=== PATIENT | female | born 1965 | race Two or more races ===

== ENCOUNTER 2017-01-26 11:06 | Emergency (ER) | payer BC, OTHER ==
[2017-01-26 11:10] VITALS: BP 139/82; PULSE 68; TEMP 98.1; BMI 29.2
--- NOTE | 2017-01-26 11:59 | PDOC ---
"History of Present Illness - General Chief Complaint: Back Pain Stated Complaint: BACK PAIN Time Seen by Provider: 01/26/17 11:37 History Source: Patient Exam Limitations: No Limitations - History of Present Illness Initial Comments: 01/26/17 15:30 My chief complaint: Right-sided lower back pain with muscle spasm, and slight pain to left anterior thigh History of present illness: Patient is a 51-year-old female with a history of laminectomy of L3-L5 on 05/17/2016 at [facility]. Patient reports that 3 days ago she started to feel right lower back pain with spasming of muscle. Patient denies doing any heavy lifting or any exercise or having any injury. Patient also reports having slight tenderness of her left anterior eye with getting up from a seated position. Patient reports that left thigh pain is intermittent only. Patient reports that right sided lower back pain is worse with walking sitting and currently now with lying. Patient denies any saddle anesthesia or incontinency or any numbness of her legs. Patient took ibuprofen around 6:30 AM today without relief of pain 800 mg. Patient reports that she try to get an appointment with her orthopedic surgeon however is unable to do so until 02/01/2017. 01/26/17 17:39 Occurred: reports: other (3 days ago ) Severity: reports: severe Pain Location: reports: back (right lower back pain ), lower extremity (left anterior thigh slight ) Method of Injury: Yes: unknown Modifying Factors: improves with: None Loss of Consciousness: no loss of consciousness Associated Symptoms (Fall): denies symptoms Past History - Past Medical History Allergies/Adverse Reactions: Allergies Allergy/AdvReac Type Severity Reaction Status Date / Time No Known Allergies Allergy Verified 01/26/17 13:27 Home Medications: Ambulatory Orders Diazepam [Valium] 5 mg PO Q8H PRN #3 tablet MDD 2 01/26/17 Oxycodone HCl/Acetaminophen [Percocet 5-325 mg Tablet] 1 tab PO Q6H #20 tablet MDD 3 01/26/17 Other medical history: NONE - Surgical History Orthopedic Surgery: Yes (laminectomy L3-L4, L4, L5 semental instrumentatioin L3- L4 & L4-L5 05/17/2016) - Suicide/Smoking/Psychosocial Hx Smoking History: Never smoked Information on smoking cessation initiated: No Hx Alcohol Use: No Drug/Substance Use Hx: No Substance Use Type: None Review of Systems - Review of Systems Able to Perform ROS?: Yes Constitutional: No: Symptoms Reported HEENTM: No: Symptoms Reported Respiratory: No: Symptoms reported Cardiac (ROS): No: Symptoms Reported ABD/GI: No: Symptoms Reported : No: Symptoms Reported Musculoskeletal: Yes: Back Pain (right sided lower back pain ), Muscle Pain ( left anterior thigh slight), Other (muscle spasm rt. lumbar paraspinal ) Integumentary: No: Symptoms Reported Neurological: No: Symptoms reported *Physical Exam - Vital Signs Last Vital Signs Temp Pulse Resp BP Pulse Ox 98.1 F 68 63 H 139/82 100 01/26/17 11:07 01/26/17 11:07 01/26/17 11:07 01/26/17 11:07 01/26/17 11:07 - Physical Exam General Appearance: Yes: Appropriately Dressed Respiratory/Chest: positive: Lungs Clear, Normal Breath Sounds. negative: Chest Tender Cardiovascular: positive: Regular Rhythm, Regular Rate, S1, S2 Musculoskeletal: positive: Normal Inspection, Decreased Range of Motion (at waist with flexion ), Muscle Spasm (rt. lumbar paraspinal muscle spasm). negative: CVA Tenderness, CVA Tenderness (R), CVA Tenderness (L), Vertebral Tenderness Extremity: positive: Normal Capillary Refill, Normal Inspection, Normal Range of Motion, Tender (minimal left thigh anterior) Neurologic: positive: Normal Response, Motor Strength 5/5 (LEGS B/L ), Respond to painful stimul (B/L ), Other (NEGATIVE SLR B/L ). negative: Numbness, Sensory Deficit (LEGS) Deep Tendon Reflexes: Knee (L): 4+, Knee (R): 4+ Medical Decision Making - Medical Decision Making Patient is a 51-year-old female with a history of laminectomy of L3-L5 on 2016 at [facility]. Patient reports that 3 days ago she started to feel right lower back pain with spasming of muscle. Patient denies doing any heavy lifting or any exercise or having any injury. Patient also reports having slight tenderness of her left anterior eye with getting up from a seated position. Patient reports that left thigh pain is intermittent only. Patient reports that right sided lower back pain is worse with walking sitting and currently now with lying. Patient denies any saddle anesthesia or incontinency or any numbness of her legs. Patient took ibuprofen around 6:30 AM today without relief of pain 800 mg. Patient reports that she try to get an appointment with her orthopedic surgeon however is unable to do so until 2016. right sided lower back pain with muscle spasm left thigh discomfort intermittent PLAN: VALIUM 5MG PO NOW THAN EVERY 8 HRS PRN MUSCLE SPASM # 3 TORADOL 60 MG IM PERCOCET 5MG 325 MG EVERY 6 HRS PRN SEVERE PAIN # 21 tabs FOLLOW UP WITH ORTHOPEDIST AT [facility] ON 02/01/17 01/26/17 13:08 Search Terms: Billy kiser, 1965 Search Date: 01/26/2017 01:07:39 PM The Drug Utilization Report below displays all of the controlled substance prescriptions, if any, that your patient has filled in the last twelve months. The information displayed on this report is compiled from pharmacy submissions to the Department, and accurately reflects the information as submitted by the pharmacies. This report was requested by: Ivelisse Reed | Reference #: [id number] 01/26/17 13:17 01/26/17 15:32 feeling much better *DC/Admit/Observation/Transfer Diagnosis at time of Disposition: Muscle spasm of back Low back pain Qualifiers: Chronicity: acute Back pain laterality: right Sciatica presence: without sciatica Qualified Code(s): M54.5 - Low back pain - Discharge Dispostion Disposition: HOME Condition at time of disposition: Stable - Prescriptions Prescriptions: Oxycodone HCl/Acetaminophen [Percocet 5-325 mg Tablet] 1 tab PO Q6H #20 tablet MDD 3 Diazepam [Valium] 5 mg PO Q8H PRN #3 tablet MDD 2 PRN Reason: Muscle Spasms - Patient Instructions Additional Instructions: FOLLOW UP WITH ORTHOPEDIST AT [facility] ON 02/01/17 RETURN TO EMERGENCY ROOM IF SYMPTOMS WORSEN, ANY NUMBNESS OF LEGS OR GROIN AREA OR PAIN WORSENS AVOID ANY STRENOUS ACTIVITIES OR EXERCISE PATIENT VOICED UNDERSTANDING OF DISCHARGE INSTRUCTIONS AND ALL QUESTIONS WERE ANSWERED THANK YOU FOR CHOOSING [facility] FOR YOUR MEDICAL NEEDS"
[2017-01-26] MEDS ORDERED: KETOROLAC TROMETHAMINE 60 MG/2 ML VIAL IM ONE (12:01)
[2017-01-26] MEDS ORDERED: diazePAM 5 MG TABLET PO ONE (12:01)
[2017-01-26] MEDS ORDERED: KETOROLAC TROMETHAMINE 60 MG/2 ML VIAL ONE (12:08)
[2017-01-26] MEDS ORDERED: diazePAM 5 MG TABLET ONE (12:08)
== END 2017-01-26 13:50 | disposition home or self-care (01) ==
LOC: JERFT 11:06 → EDBD 11:06 → JERFT 13:50
PROC: 3E0233Z Introduction of Anti-inflammatory into Muscle, Percutaneous Approach (ICD-10-PCS; principal; 2017-01-26)
DX: M62.830 Muscle spasm of back (principal); M54.5 Low back pain
CPT/HCPCS: 99281-25